=== PATIENT | female | born 1930 | race Caucasian/White ===

== ENCOUNTER 2017-01-05 06:58 | Day surgery (SDC) | payer OTHER, MEDICARE ==
[2017-01-05] MEDS ORDERED: FULVESTRANT 250 MG/5 ML SYRINGE IM ONE (08:00)
[2017-01-05 09:09] LABS: BASOPHIL 1.5 % (0-2.0); EOSINOPHIL 3.1 % (0-4.5); MCH 30.8 pg (25.7-33.7); MCHC 33.6 g/dl (32.0-36.0); MEAN CELL VOLUME 91.8 fl (80-96); MEAN PLT VOLUME 9.5 fl (7.5-11.1); NEUTROPHILS 62.3 % (42.8-82.8); PLATELET COUNT 175 K/MM3 (134-434); RDW 14.2 % (11.6-15.6); WHITE BLOOD COUNT 7.3 K/mm3 (4.0-10.0)
[2017-01-05 11:42] LABS: ALBUMIN 3.6 g/dl (3.4-5.0); BILIRUBIN,DIRECT 0.2 mg/dL (0.0-0.2); BILIRUBIN,TOTAL 0.6 mg/dL (0.2-1.0); TOT PROT 6.6 g/dl (6.4-8.2)
[2017-01-05 13:32] VITALS: TEMP 98.1
[2017-01-05 16:18] VITALS: BP 179/83; PULSE 64
== END 2017-01-05 11:30 | disposition home or self-care (01) ==
LOC: JONCCHEMO 06:58 → J7W 10:37 → JONCCHEMO 11:30
PROVIDERS: ATTEND Internal Medicine Hematology & Oncology
DX: Z51.11 Encounter for antineoplastic chemotherapy (principal); C50.411 Malignant neoplasm of upper-outer quadrant of right female breast
CPT/HCPCS: 96402; J9395; 36415; 80076; 82378; 85025; 86300

== ENCOUNTER 2017-01-19 07:15 | Day surgery (SDC) | payer OTHER, MEDICARE ==
[2017-01-19] MEDS ORDERED: FULVESTRANT 250 MG/5 ML SYRINGE IM ONE (08:00)
[2017-01-19 09:40] LABS: BASOPHIL 1.3 % (0-2.0); EOSINOPHIL 5.6 % (0-4.5); MCH 31.3 pg (25.7-33.7); MCHC 33.9 g/dl (32.0-36.0); MEAN CELL VOLUME 92.3 fl (80-96); MEAN PLT VOLUME 9.5 fl (7.5-11.1); NEUTROPHILS 63.3 % (42.8-82.8); PLATELET COUNT 172 K/MM3 (134-434); RDW 14.7 % (11.6-15.6); WHITE BLOOD COUNT 7.3 K/mm3 (4.0-10.0)
[2017-01-19 11:01] VITALS: BP 172/78; PULSE 58
[2017-01-19 13:38] VITALS: TEMP 97.5
== END 2017-01-19 15:25 | disposition home or self-care (01) ==
LOC: JONCCHEMO 07:15 → J7W 10:52 → JONCCHEMO 15:25
PROVIDERS: ATTEND Internal Medicine Hematology & Oncology
DX: Z51.11 Encounter for antineoplastic chemotherapy (principal); C50.411 Malignant neoplasm of upper-outer quadrant of right female breast
CPT/HCPCS: 96402; J9395; 36415; 85025

== ENCOUNTER 2017-02-16 07:44 | Day surgery (SDC) | payer OTHER, MEDICARE ==
[2017-02-16 09:59] LABS: BASOPHIL 0.7 % (0-2.0); EOSINOPHIL 6.8 % (0-4.5); MCH 31.1 pg (25.7-33.7); MCHC 33.3 g/dl (32.0-36.0); MEAN CELL VOLUME 93.3 fl (80-96); MEAN PLT VOLUME 9.5 fl (7.5-11.1); NEUTROPHILS 61.9 % (42.8-82.8); PLATELET COUNT 163 K/MM3 (134-434); RDW 14.7 % (11.6-15.6); WHITE BLOOD COUNT 6.7 K/mm3 (4.0-10.0)
[2017-02-16] MEDS ORDERED: FULVESTRANT 250 MG/5 ML SYRINGE IM ONE (10:00)
[2017-02-16] MEDS ORDERED: ZOLEDRONIC ACID 4 MG in SODIUM CHLORIDE 100 ML IVPB ONE (10:00)
[2017-02-16 11:39] LABS: ALBUMIN 3.3 g/dl (3.4-5.0); ALK PHOS 90 U/L (45-117); ANION GAP 8 (8-16); BILIRUBIN,DIRECT 0.2 mg/dL (0.0-0.2); BILIRUBIN,TOTAL 0.8 mg/dL (0.2-1.0); CO2 31 mmol/L (21-32); COCKROFT - GAULT 60.35; CREATININE 0.7 mg/dL (0.55-1.02); GLUCOSE,RANDOM 89 mg/dL (74-106); MAGNESIUM 2.2 mg/dL (1.8-2.4); SGOT/AST 29 U/L (15-37); SGPT/ALT 44 U/L (12-78); TOT PROT 6.3 g/dl (6.4-8.2)
[2017-02-16 11:51] VITALS: TEMP 98
[2017-02-16 16:08] VITALS: BP 134/75; PULSE 50
== END 2017-02-16 18:31 | disposition home or self-care (01) ==
LOC: JONCCHEMO 07:44 → J7W 10:41 → JONCCHEMO 18:31
PROVIDERS: ATTEND Internal Medicine Hematology & Oncology
PROC: 3E01305 Introduction of Other Antineoplastic into Subcutaneous Tissue, Percutaneous Approach (ICD-10-PCS; principal; 2017-02-16)
PROC: 3E033GC Introduction of Other Therapeutic Substance into Peripheral Vein, Percutaneous Approach (ICD-10-PCS; 2017-02-16)
DX: Z51.11 Encounter for antineoplastic chemotherapy (principal); C50.411 Malignant neoplasm of upper-outer quadrant of right female breast
CPT/HCPCS: 96365; 96402; J3489; J9395; 36415; 80053; 80076; 82306; 83735; 85025

== ENCOUNTER 2017-03-16 07:34 | Day surgery (SDC) | payer OTHER, MEDICARE ==
[2017-03-16 09:49] LABS: BASOPHIL 0.8 % (0-2.0); EOSINOPHIL 6.4 % (0-4.5); MCH 31.3 pg (25.7-33.7); MCHC 33.5 g/dl (32.0-36.0); MEAN CELL VOLUME 93.4 fl (80-96); MEAN PLT VOLUME 9.5 fl (7.5-11.1); PLATELET COUNT 160 K/MM3 (134-434); RDW 14.6 % (11.6-15.6); WHITE BLOOD COUNT 5.5 K/mm3 (4.0-10.0)
[2017-03-16] MEDS ORDERED: ZOLEDRONIC ACID 4 MG in SODIUM CHLORIDE 100 ML IVPB ONE (10:00)
[2017-03-16] MEDS ORDERED: FULVESTRANT 250 MG/5 ML SYRINGE IM ONE (10:00)
[2017-03-16 10:24] LABS: ALBUMIN 3.4 g/dl (3.4-5.0); ANION GAP 8 (8-16); BILIRUBIN,DIRECT 0.2 mg/dL (0.0-0.2); BILIRUBIN,TOTAL 0.7 mg/dL (0.2-1.0); CALCIUM 9.8 mg/dL (8.5-10.1); CO2 28 mmol/L (21-32); CREATININE 0.8 mg/dL (0.55-1.02); GLUCOSE,RANDOM 101 mg/dL (74-106); SGOT/AST 46 U/L (15-37); SGPT/ALT 48 U/L (12-78); TOT PROT 6.3 g/dl (6.4-8.2)
[2017-03-16 10:25] LABS: ALK PHOS 87 U/L (45-117)
[2017-03-16] MEDS ORDERED: amLODIPine BESYLATE 5 MG TABLET (FP) PO PRN (11:30)
[2017-03-16 13:50] VITALS: BP 177/82; PULSE 51; TEMP 98.1
== END 2017-03-16 13:57 | disposition home or self-care (01) ==
LOC: JONCCHEMO 07:34 → J7W 10:59 → JONCCHEMO 13:57
PROVIDERS: ATTEND Internal Medicine Hematology & Oncology
PROC: 3E01305 Introduction of Other Antineoplastic into Subcutaneous Tissue, Percutaneous Approach (ICD-10-PCS; principal; 2017-03-16)
PROC: 3E033GC Introduction of Other Therapeutic Substance into Peripheral Vein, Percutaneous Approach (ICD-10-PCS; 2017-03-16)
DX: Z51.11 Encounter for antineoplastic chemotherapy (principal); C50.411 Malignant neoplasm of upper-outer quadrant of right female breast
CPT/HCPCS: 36415; 80053; 80076; 83735; 85025; 96365; 96402; 96417; J3489; J9395

== ENCOUNTER 2017-04-13 07:32 | Day surgery (SDC) | payer OTHER, MEDICARE ==
[2017-04-13] MEDS ORDERED: ZOLEDRONIC ACID 4 MG in SODIUM CHLORIDE 100 ML IVPB ONE (08:00)
[2017-04-13] MEDS ORDERED: FULVESTRANT 250 MG/5 ML SYRINGE IM ONE (09:00)
[2017-04-13 09:15] LABS: BASOPHIL 2.3 % (0-2.0); EOSINOPHIL 6.9 % (0-4.5); MCH 31.2 pg (25.7-33.7); MCHC 33.4 g/dl (32.0-36.0); MEAN CELL VOLUME 93.4 fl (80-96); MEAN PLT VOLUME 10.1 fl (7.5-11.1); NEUTROPHILS 48.6 % (42.8-82.8); PLATELET COUNT 171 K/MM3 (134-434); RDW 14.9 % (11.6-15.6); WHITE BLOOD COUNT 6.9 K/mm3 (4.0-10.0)
[2017-04-13 09:42] LABS: ALBUMIN 3.2 g/dl (3.4-5.0); ANION GAP 9 (8-16); BILIRUBIN,TOTAL 0.5 mg/dL (0.2-1.0); CALCIUM 9.9 mg/dL (8.5-10.1); CO2 23 mmol/L (21-32); CREATININE 0.8 mg/dL (0.55-1.02); GLUCOSE,RANDOM 114 mg/dL (74-106); SGOT/AST 39 U/L (15-37); SGPT/ALT 41 U/L (12-78); TOT PROT 6.4 g/dl (6.4-8.2)
[2017-04-13 09:43] LABS: ALK PHOS 79 U/L (45-117)
[2017-04-13 09:44] LABS: BILIRUBIN,DIRECT < 0.1 mg/dL (0.0-0.2)
[2017-04-13 14:33] VITALS: BP 178/79; PULSE 47; TEMP 97.6
== END 2017-04-13 12:00 | disposition home or self-care (01) ==
LOC: JONCCHEMO 07:32 → J7W 09:56 → JONCCHEMO 12:00
PROVIDERS: ATTEND Internal Medicine Hematology & Oncology
PROC: 3E01305 Introduction of Other Antineoplastic into Subcutaneous Tissue, Percutaneous Approach (ICD-10-PCS; principal; 2017-04-13)
PROC: 3E033GC Introduction of Other Therapeutic Substance into Peripheral Vein, Percutaneous Approach (ICD-10-PCS; 2017-04-13)
DX: Z51.11 Encounter for antineoplastic chemotherapy (principal); C50.411 Malignant neoplasm of upper-outer quadrant of right female breast
CPT/HCPCS: 36415; 80053; 80076; 85025; 96402; 96417; J3489; J9395

== ENCOUNTER 2017-05-11 07:26 | Day surgery (SDC) | payer OTHER, MEDICARE ==
[2017-05-11] MEDS ORDERED: FULVESTRANT 250 MG/5 ML SYRINGE IM ONE (10:00)
[2017-05-11] MEDS ORDERED: ZOLEDRONIC ACID 4 MG in SODIUM CHLORIDE 100 ML IVPB ONE (10:00)
[2017-05-11 17:32] VITALS: BP 140/59; PULSE 75; TEMP 97.7
== END 2017-05-11 14:25 | disposition home or self-care (01) ==
LOC: JONCCHEMO 07:26 → J7W 09:25 → JONCCHEMO 14:25
PROVIDERS: ATTEND Internal Medicine Hematology & Oncology
PROC: 3E01305 Introduction of Other Antineoplastic into Subcutaneous Tissue, Percutaneous Approach (ICD-10-PCS; principal; 2017-05-11)
PROC: 3E033GC Introduction of Other Therapeutic Substance into Peripheral Vein, Percutaneous Approach (ICD-10-PCS; 2017-05-11)
DX: Z51.11 Encounter for antineoplastic chemotherapy (principal); C50.411 Malignant neoplasm of upper-outer quadrant of right female breast
CPT/HCPCS: 96365; 96401; 96402; 96417; J3489; J9395

== ENCOUNTER 2017-06-08 07:38 | Day surgery (SDC) | payer OTHER, MEDICARE ==
[2017-06-08] MEDS ORDERED: FULVESTRANT 250 MG/5 ML SYRINGE IM ONE (08:00)
[2017-06-08 10:57] LABS: BASOPHIL 0.9 % (0-2.0); EOSINOPHIL 5.4 % (0-4.5); MCH 30.7 pg (25.7-33.7); MCHC 32.9 g/dl (32.0-36.0); MEAN CELL VOLUME 93.3 fl (80-96); MEAN PLT VOLUME 9.7 fl (7.5-11.1); NEUTROPHILS 61.7 % (42.8-82.8); PLATELET COUNT 186 K/MM3 (134-434); WHITE BLOOD COUNT 6.8 K/mm3 (4.0-10.0)
[2017-06-08 11:09] LABS: ALBUMIN 3.4 g/dl (3.4-5.0); ANION GAP 3 (8-16); BILIRUBIN,DIRECT 0.2 mg/dL (0.0-0.2); CO2 33 mmol/L (21-32); CREATININE 0.8 mg/dL (0.55-1.02); GLUCOSE,RANDOM 87 mg/dL (74-106); SGOT/AST 22 U/L (15-37); SGPT/ALT 28 U/L (12-78)
[2017-06-08 11:10] LABS: ALK PHOS 57 U/L (45-117); BILIRUBIN,TOTAL 0.7 mg/dL (0.2-1.0); TOT PROT 6.6 g/dl (6.4-8.2)
[2017-06-08] MEDS ORDERED: ZOLEDRONIC ACID 4 MG in SODIUM CHLORIDE 100 ML IVPB ONE (12:15)
[2017-06-08 15:00] VITALS: TEMP 98.2
[2017-06-08 15:05] VITALS: BP 176/78; PULSE 46
== END 2017-06-08 13:15 | disposition home or self-care (01) ==
LOC: JONCCHEMO 07:38 → J7W 11:29 → JONCCHEMO 13:15
PROVIDERS: ATTEND Internal Medicine Hematology & Oncology
PROC: 3E033GC Introduction of Other Therapeutic Substance into Peripheral Vein, Percutaneous Approach (ICD-10-PCS; principal; 2017-06-08)
DX: C50.411 Malignant neoplasm of upper-outer quadrant of right female breast (principal)
CPT/HCPCS: 36415; 80053; 80076; 83735; 85025; 96365; 96417; J3489; J9395

== ENCOUNTER 2017-07-06 07:18 | Day surgery (SDC) | payer OTHER, MEDICARE ==
[2017-07-06 09:38] LABS: BASOPHIL 1.2 % (0-2.0); EOSINOPHIL 6.2 % (0-4.5); MCH 30.5 pg (25.7-33.7); MCHC 33.3 g/dl (32.0-36.0); MEAN CELL VOLUME 91.7 fl (80-96); MEAN PLT VOLUME 9.2 fl (7.5-11.1); NEUTROPHILS 58.1 % (42.8-82.8); PLATELET COUNT 196 K/MM3 (134-434); RDW 14.9 % (11.6-15.6); WHITE BLOOD COUNT 6.6 K/mm3 (4.0-10.0)
[2017-07-06] MEDS ORDERED: ZOLEDRONIC ACID 4 MG in SODIUM CHLORIDE 100 ML IVPB ONE (10:00)
[2017-07-06 10:02] LABS: ALBUMIN 3.5 g/dl (3.4-5.0); ALK PHOS 62 U/L (45-117); ANION GAP 2 (8-16); BILIRUBIN,DIRECT 0.2 mg/dL (0.0-0.2); BILIRUBIN,TOTAL 0.8 mg/dL (0.2-1.0); CALCIUM 10.3 mg/dL (8.5-10.1); CO2 36 mmol/L (21-32); CREATININE 0.8 mg/dL (0.55-1.02); GLUCOSE,RANDOM 66 mg/dL (74-106); MAGNESIUM 2.2 mg/dL (1.8-2.4); SGOT/AST 21 U/L (15-37); SGPT/ALT 27 U/L (12-78); TOT PROT 6.8 g/dl (6.4-8.2)
[2017-07-06] MEDS ORDERED: FULVESTRANT 250 MG/5 ML SYRINGE IM ONE (11:00)
[2017-07-06 12:04] VITALS: BP 122/56; PULSE 71; TEMP 98.1
== END 2017-07-06 11:56 | disposition home or self-care (01) ==
LOC: JONCCHEMO 07:18 → J7W 10:44 → JONCCHEMO 11:56
PROVIDERS: ATTEND Internal Medicine Hematology & Oncology
PROC: 3E01305 Introduction of Other Antineoplastic into Subcutaneous Tissue, Percutaneous Approach (ICD-10-PCS; principal; 2017-07-06)
PROC: 3E033GC Introduction of Other Therapeutic Substance into Peripheral Vein, Percutaneous Approach (ICD-10-PCS; 2017-07-06)
DX: Z51.11 Encounter for antineoplastic chemotherapy (principal); C50.411 Malignant neoplasm of upper-outer quadrant of right female breast
CPT/HCPCS: 36415; 80053; 80076; 83735; 85025; 96365; 96402; 96417; J3489; J9395

== ENCOUNTER 2017-08-03 07:15 | Day surgery (SDC) | payer OTHER, MEDICARE ==
[2017-08-03 09:37] LABS: BASOPHIL 1.1 % (0-2.0); EOSINOPHIL 4.7 % (0-4.5); MCH 30.1 pg (25.7-33.7); MCHC 32.3 g/dl (32.0-36.0); MEAN CELL VOLUME 93.1 fl (80-96); NEUTROPHILS 59.9 % (42.8-82.8); PLATELET COUNT 234 K/MM3 (134-434); RDW 15.1 % (11.6-15.6); WHITE BLOOD COUNT 7.2 K/mm3 (4.0-10.0)
[2017-08-03] MEDS ORDERED: ZOLEDRONIC ACID 4 MG in SODIUM CHLORIDE 100 ML IVPB ONE (10:00)
[2017-08-03 10:06] LABS: ALBUMIN 3.3 g/dl (3.4-5.0); ANION GAP 6 (8-16); BILIRUBIN,DIRECT 0.2 mg/dL (0.0-0.2); CALCIUM 9.4 mg/dL (8.5-10.1); CO2 30 mmol/L (21-32); CREATININE 0.8 mg/dL (0.55-1.02); GLUCOSE,RANDOM 84 mg/dL (74-106); MAGNESIUM 1.9 mg/dL (1.8-2.4); SGOT/AST 21 U/L (15-37); SGPT/ALT 29 U/L (12-78)
[2017-08-03 10:08] LABS: ALK PHOS 62 U/L (45-117); BILIRUBIN,TOTAL 0.7 mg/dL (0.2-1.0); TOT PROT 6.6 g/dl (6.4-8.2)
[2017-08-03] MEDS ORDERED: FULVESTRANT 250 MG/5 ML SYRINGE IM ONE (10:45)
[2017-08-03 13:44] VITALS: BP 142/76; PULSE 64; TEMP 97.8
== END 2017-08-03 12:00 | disposition home or self-care (01) ==
LOC: JONCCHEMO 07:15 → J7W 10:07 → JONCCHEMO 12:00
PROVIDERS: ATTEND Internal Medicine Hematology & Oncology
PROC: 3E01305 Introduction of Other Antineoplastic into Subcutaneous Tissue, Percutaneous Approach (ICD-10-PCS; principal; 2017-08-03)
PROC: 3E033GC Introduction of Other Therapeutic Substance into Peripheral Vein, Percutaneous Approach (ICD-10-PCS; 2017-08-03)
DX: Z51.11 Encounter for antineoplastic chemotherapy (principal); C50.411 Malignant neoplasm of upper-outer quadrant of right female breast
CPT/HCPCS: 36415; 80053; 80076; 83735; 85025; 96365; 96402; 96417; J3489; J9395

== ENCOUNTER 2017-08-31 07:23 | Day surgery (SDC) | payer OTHER, MEDICARE ==
[2017-08-31] MEDS ORDERED: FULVESTRANT 250 MG/5 ML SYRINGE IM ONE (08:00)
[2017-08-31] MEDS ORDERED: ZOLEDRONIC ACID 4 MG in SODIUM CHLORIDE 100 ML IVPB ONE (08:15)
[2017-08-31 09:50] LABS: BASO % 0.9 % (0-2.0); EOS % 5.3 % (0-4.5); MCH 30.5 pg (25.7-33.7); MCHC 32.7 g/dl (32.0-36.0); MEAN CELL VOLUME 93.4 fl (80-96); MEAN PLT VOLUME 8.8 fl (7.5-11.1); NEUT % 59.8 % (42.8-82.8); PLATELET COUNT 226 K/MM3 (134-434); RDW 15.1 % (11.6-15.6); WHITE BLOOD COUNT 5.7 K/mm3 (4.0-10.0)
[2017-08-31 10:17] LABS: ALBUMIN 3.2 g/dl (3.4-5.0); ALK PHOS 57 U/L (45-117); ANION GAP 7 (8-16); BILIRUBIN,DIRECT 0.2 mg/dL (0.0-0.2); BILIRUBIN,TOTAL 0.6 mg/dL (0.2-1.0); CALCIUM 9.9 mg/dL (8.5-10.1); CO2 29 mmol/L (21-32); CREATININE 0.7 mg/dL (0.55-1.02); GLUCOSE,RANDOM 92 mg/dL (74-106); SGOT/AST 19 U/L (15-37); SGPT/ALT 26 U/L (12-78); TOT PROT 6.3 g/dl (6.4-8.2)
[2017-08-31 14:03] VITALS: TEMP 97.5
[2017-08-31 16:22] VITALS: BP 139/75; PULSE 28
== END 2017-08-31 12:10 | disposition home or self-care (01) ==
LOC: JONCCHEMO 07:23 → J7W 10:31 → JONCCHEMO 12:10
PROVIDERS: ATTEND Internal Medicine Hematology & Oncology
PROC: 3E01305 Introduction of Other Antineoplastic into Subcutaneous Tissue, Percutaneous Approach (ICD-10-PCS; principal; 2017-08-31)
PROC: 3E033GC Introduction of Other Therapeutic Substance into Peripheral Vein, Percutaneous Approach (ICD-10-PCS; 2017-08-31)
DX: Z51.11 Encounter for antineoplastic chemotherapy (principal)
CPT/HCPCS: 36415; 80053; 80076; 83735; 85025; 96365; 96402; 96417; J3489; J9395

== ENCOUNTER 2017-10-05 07:39 | Day surgery (SDC) | payer OTHER, MEDICARE ==
[2017-10-05] MEDS ORDERED: FULVESTRANT 250 MG/5 ML SYRINGE IM ONE (08:00)
[2017-10-05] MEDS ORDERED: ZOLEDRONIC ACID 4 MG in SODIUM CHLORIDE 100 ML IVPB ONE (08:30)
[2017-10-05 09:50] LABS: BASO % 0.9 % (0-2.0); EOS % 3.6 % (0-4.5); HEMATOCRIT 43.4 % (32.4-45.2); LYMPH % 22.5 % (8-40); MCH 30.2 pg (25.7-33.7); MCHC 32.4 g/dl (32.0-36.0); MEAN CELL VOLUME 93.3 fl (80-96); MEAN PLT VOLUME 9.3 fl (7.5-11.1); MONO % 7.9 % (3.8-10.2); NEUT % 65.1 % (42.8-82.8); PLATELET COUNT 195 K/MM3 (134-434); RBC 4.65 M/mm3 (3.60-5.2); RDW 15.4 % (11.6-15.6); WHITE BLOOD COUNT 6.9 K/mm3 (4.0-10.0)
[2017-10-05 10:12] LABS: ALBUMIN 3.3 g/dl (3.4-5.0); ANION GAP 6 (8-16); BILIRUBIN,DIRECT < 0.2 mg/dL (0.0-0.2); BLOOD UREA NITROGEN 14 mg/dL (7-18); CALCIUM 9.4 mg/dL (8.5-10.1); CHLORIDE 100 mmol/L (98-107); CO2 30 mmol/L (21-32); GLUCOSE,RANDOM 75 mg/dL (74-106); MAGNESIUM 1.8 mg/dL (1.8-2.4); POTASSIUM 4.4 mmol/L (3.5-5.1); SGOT/AST 20 U/L (15-37); SGPT/ALT 26 U/L (12-78); SODIUM 136 mmol/L (136-145)
[2017-10-05 10:20] LABS: ALK PHOS 61 U/L (45-117); BILIRUBIN,TOTAL 0.6 mg/dL (0.2-1.0); CREATININE 0.7 mg/dL (0.55-1.02); TOT PROT 6.4 g/dl (6.4-8.2)
[2017-10-05 12:36] VITALS: BP 144/76; PULSE 60; TEMP 98.2
== END 2017-10-05 11:45 | disposition home or self-care (01) ==
LOC: JONCCHEMO 07:39 → J7W 09:55 → JONCCHEMO 11:45
PROVIDERS: ATTEND Internal Medicine Hematology & Oncology
PROC: 3E01305 Introduction of Other Antineoplastic into Subcutaneous Tissue, Percutaneous Approach (ICD-10-PCS; principal; 2017-10-05)
PROC: 3E033GC Introduction of Other Therapeutic Substance into Peripheral Vein, Percutaneous Approach (ICD-10-PCS; 2017-10-05)
DX: Z51.11 Encounter for antineoplastic chemotherapy (principal); C50.411 Malignant neoplasm of upper-outer quadrant of right female breast; C79.51 Secondary malignant neoplasm of bone
CPT/HCPCS: 36415; 80053; 80076; 82378; 83735; 85025; 86300; 96365; 96402; 96417; J3489; J9395

== ENCOUNTER 2017-11-30 07:19 | Day surgery (SDC) | payer OTHER, MEDICARE ==
[2017-11-30] MEDS ORDERED: FULVESTRANT 250 MG/5 ML SYRINGE IM ONE (08:00)
[2017-11-30] MEDS ORDERED: ZOLEDRONIC ACID 4 MG in SODIUM CHLORIDE 100 ML IVPB ONE (08:30)
[2017-11-30 10:03] LABS: EOS % 5.2 % (0-4.5); HEMATOCRIT 41.1 % (32.4-45.2); HEMOGLOBIN 13.8 GM/dL (10.7-15.3); LYMPH % 24.1 % (8-40); MCH 31.4 pg (25.7-33.7); MCHC 33.7 g/dl (32.0-36.0); MEAN CELL VOLUME 93.4 fl (80-96); MEAN PLT VOLUME 9.2 fl (7.5-11.1); MONO % 7.9 % (3.8-10.2); NEUT % 61.8 % (42.8-82.8); PLATELET COUNT 200 K/MM3 (134-434); RDW 14.8 % (11.6-15.6); WHITE BLOOD COUNT 6.5 K/mm3 (4.0-10.0)
[2017-11-30 10:30] LABS: URINE APPEARANCE SLCLOUDY; URINE BILIRUBIN NEGATIVE (NEGATIVE); URINE BLOOD NEGATIVE (NEGATIVE); URINE COLOR YELLOW; URINE GLUCOSE (UA) NEGATIVE (NEGATIVE); URINE KETONE NEGATIVE (NEGATIVE); URINE LEUK ESTERASE NEGATIVE (NEGATIVE); URINE NITRITE NEGATIVE (NEGATIVE); URINE PROTEIN NEGATIVE (NEGATIVE); URINE UROBILINOGEN NEGATIVE mg/dL (0.2-1.0)
[2017-11-30 10:39] LABS: ALBUMIN 3.2 g/dl (3.4-5.0); BILIRUBIN,DIRECT 0.2 mg/dL (0.0-0.2); BILIRUBIN,TOTAL 0.5 mg/dL (0.2-1.0); MAGNESIUM 1.9 mg/dL (1.8-2.4); TOT PROT 6.5 g/dl (6.4-8.2)
[2017-11-30 10:40] LABS: ALBUMIN 3.4 g/dl (3.4-5.0); ANION GAP 6 (8-16); BILIRUBIN,TOTAL 0.5 mg/dL (0.2-1.0); BLOOD UREA NITROGEN 19 mg/dL (7-18); CALCIUM 9.6 mg/dL (8.5-10.1); CHLORIDE 101 mmol/L (98-107); CO2 30 mmol/L (21-32); CREATININE 0.7 mg/dL (0.55-1.02); GLUCOSE,RANDOM 91 mg/dL (74-106); POTASSIUM 4.5 mmol/L (3.5-5.1); SGOT/AST 21 U/L (15-37); SGPT/ALT 27 U/L (12-78); SODIUM 137 mmol/L (136-145); TOT PROT 6.6 g/dl (6.4-8.2)
[2017-11-30 10:49] LABS: ALK PHOS 75 U/L (45-117)
[2017-11-30 11:06] LABS: CHOLESTEROL 198 mg/dL (50-200); HDL CHOLESTEROL 70 mg/dL (40-60); LDL CHOLESTEROL (ONLY SJRH) 101 mg/dL (5-100); TRIGLYCERIDES 189 mg/dL (35-160)
[2017-11-30] MEDS ORDERED: amLODIPine BESYLATE 2.5 MG TABLET (FP) PO ONE (12:00)
[2017-11-30 18:27] VITALS: BP 130/72; PULSE 51; TEMP 98.4
== END 2017-11-30 13:45 | disposition home or self-care (01) ==
LOC: JONCCHEMO 07:19 → J7W 10:49 → JONCCHEMO 13:45
PROVIDERS: ATTEND Internal Medicine Hematology & Oncology
PROC: 3E01305 Introduction of Other Antineoplastic into Subcutaneous Tissue, Percutaneous Approach (ICD-10-PCS; principal; 2017-11-30)
PROC: 3E033GC Introduction of Other Therapeutic Substance into Peripheral Vein, Percutaneous Approach (ICD-10-PCS; 2017-11-30)
DX: Z51.11 Encounter for antineoplastic chemotherapy (principal); C50.411 Malignant neoplasm of upper-outer quadrant of right female breast; C79.51 Secondary malignant neoplasm of bone
CPT/HCPCS: 36415; 80053; 80061; 80076; 81003; 82306; 82378; 82570; 82607; 83721; 83735; 84439; 84443; 85025; 86300; 96365; 96402; 96417; J3489; J9395

== ENCOUNTER 2018-01-25 07:24 | Day surgery (SDC) | payer OTHER, MEDICARE ==
[2018-01-25] MEDS ORDERED: FULVESTRANT 250 MG/5 ML SYRINGE IM ONE (08:00)
[2018-01-25] MEDS ORDERED: ZOLEDRONIC ACID 4 MG in SODIUM CHLORIDE 100 ML IVPB ONE (08:00)
[2018-01-25 10:17] LABS: EOS % 6.6 % (0-4.5); HEMATOCRIT 39.5 % (32.4-45.2); HEMOGLOBIN 13.5 GM/dL (10.7-15.3); LYMPH % 22.3 % (8-40); MCH 31.7 pg (25.7-33.7); MCHC 34.3 g/dl (32.0-36.0); MEAN CELL VOLUME 92.4 fl (80-96); MEAN PLT VOLUME 9.2 fl (7.5-11.1); MONO % 8.1 % (3.8-10.2); PLATELET COUNT 215 K/MM3 (134-434); RBC 4.27 M/mm3 (3.60-5.2); RDW 15.1 % (11.6-15.6); WHITE BLOOD COUNT 6.2 K/mm3 (4.0-10.0)
[2018-01-25 10:43] LABS: ALBUMIN 3.6 g/dl (3.4-5.0); ANION GAP 9 (8-16); BLOOD UREA NITROGEN 14 mg/dL (7-18); CHLORIDE 100 mmol/L (98-107); CO2 29 mmol/L (21-32); CREATININE 0.8 mg/dL (0.55-1.02); GLUCOSE,RANDOM 97 mg/dL (74-106); POTASSIUM 4.4 mmol/L (3.5-5.1); SGOT/AST 23 U/L (15-37); SGPT/ALT 23 U/L (12-78); SODIUM 138 mmol/L (136-145)
[2018-01-25 10:45] LABS: ALK PHOS 75 U/L (45-117); BILIRUBIN,TOTAL 0.6 mg/dL (0.2-1.0); TOT PROT 6.5 g/dl (6.4-8.2)
[2018-01-25 10:46] LABS: BILIRUBIN,DIRECT 0.2 mg/dL (0.0-0.2); MAGNESIUM 2.2 mg/dL (1.8-2.4)
[2018-01-25 18:33] VITALS: TEMP 97.6
[2018-01-25 18:36] VITALS: BP 127/87; PULSE 61
== END 2018-01-25 13:35 | disposition home or self-care (01) ==
LOC: JONCCHEMO 07:24 → J7W 11:15 → JONCCHEMO 13:35
PROVIDERS: ATTEND Internal Medicine Hematology & Oncology
PROC: 3E01305 Introduction of Other Antineoplastic into Subcutaneous Tissue, Percutaneous Approach (ICD-10-PCS; principal; 2018-01-25)
PROC: 3E033GC Introduction of Other Therapeutic Substance into Peripheral Vein, Percutaneous Approach (ICD-10-PCS; 2018-01-25)
DX: Z51.11 Encounter for antineoplastic chemotherapy (principal); C50.411 Malignant neoplasm of upper-outer quadrant of right female breast; C79.51 Secondary malignant neoplasm of bone
CPT/HCPCS: 36415; 80053; 80076; 83735; 85025; 96365; 96402; 96417; J3489; J9395

== ENCOUNTER 2018-02-09 20:32 | Emergency (ER) | payer OTHER, MEDICARE ==
[2018-02-09 20:44] VITALS: BP 167/99; PULSE 75; TEMP 98.9; BMI 28.5
--- NOTE | 2018-02-09 20:45 | PDOC ---
Rapid Medical Evaluation Time Seen by Provider: 02/09/18 20:39 Medical Evaluation: Allergies Allergy/AdvReac Type Severity Reaction Status Date / Time Penicillins Allergy Verified 07/17/14 22:07 bee stings Allergy Uncoded 07/17/14 22:07 02/09/18 20:40 Pt. is an 88 y.o F with pmh of breast cancer, who presents to the ED with R arm pain trying to open a window. States she felt a snap/pop. Exam: TTP of the R humerus, unable to lift R arm without assistance. Orders: R humerus x-ray Pt. will proceed to ED for further evaluation. Discharge Disposition - Referrals Referrals: Kendell Hoyt MD [Primary Care Provider] - - Patient Instructions - Post Discharge Activity
--- NOTE | 2018-02-10 00:35 | PDOC ---
*Physical Exam - Vital Signs Last Vital Signs Temp Pulse Resp BP Pulse Ox 98.9 F 75 18 167/99 97 02/09/18 20:40 02/09/18 20:40 02/09/18 20:40 02/09/18 20:40 02/09/18 20:40 Medical Decision Making - Medical Decision Making 02/10/18 00:35 Pt seen by Midlevel Provider under my direct supervision Ancillary studies reviewed I agree with plan as outlined by Midlevel Provider *DC/Admit/Observation/Transfer Diagnosis at time of Disposition: Injury of right rotator cuff - Discharge Dispostion Disposition: HOME Condition at time of disposition: Good - Referrals Referrals: Jose Eduardo Martinez MD [Staff Physician] - Call tomorrow Kendell Hoyt MD [Primary Care Provider] - - Patient Instructions Printed Discharge Instructions: How to Use a Sling, DI for Rotator Cuff Injury Additional Instructions: Discharge Instructions: -The xray of your shoulder was normal -You probably injured your rotator cuff -Please take Tylenol for pain if needed -Use sling for comfort -Apply ice to affected area -Follow up with Dr. Martinez tomorrow -Return to the ER with any worsening or concerning symptoms - Post Discharge Activity
--- NOTE | 2018-02-10 00:41 | PDOC ---
History of Present Illness - General Chief Complaint: Injury Stated Complaint: PAIN Time Seen by Provider: 02/09/18 20:39 History Source: Patient Exam Limitations: No Limitations - History of Present Illness Initial Comments: CHIEF COMPLAINT: 88 y/o afebrile female with PMH HTN, HLD, breast CA with recent relapse c/o right shoulder/arm pain. HISTORY OF PRESENT ILLNESS: The patient states she was opening up one of her windows this evening when she felt a "pop" in her right shoulder and was then unable to move her right arm. She denies numbness/tingling. Vital signs on arrival are within normal limits. REVIEW OF SYSTEMS: GENERAL/CONSTITUTIONAL: No fever/chills. No weakness. No weight change. MUSCULOSKELETAL: +right shoulder pain and decreased ROM. No neck or back pain. SKIN: No rash or easy bruising. NEUROLOGIC: No headache, vertigo, loss of consciousness, or loss of sensation. PHYSICAL EXAM: VITAL_SIGNS: within normal limits GENERAL_APPEARANCE: alert, cooperative, mild obvious discomfort. The patient is holding her right arm against her body. MENTAL_STATUS: speech clear, oriented X 3, responds appropriately to questions. NEURO: motor intact and sensory intact in injured extremity. EXTREMITIES: TTP of right AC joint. Patient cannot flex right arm. She cannot abduct her right arm at all. No deformities to shoulder joint. No clavicular crepitus or tenting. SKIN: warm, dry, good color. Past History - Past Medical History Allergies/Adverse Reactions: Allergies Allergy/AdvReac Type Severity Reaction Status Date / Time Penicillins Allergy Verified 02/09/18 20:40 bee stings Allergy Uncoded 02/09/18 20:40 Home Medications: Ambulatory Orders Tamoxifen Citrate 20 mg PO HS 07/04/14 Acetaminophen [Tylenol .Regular Strength -] 650 mg PO Q4H PRN #0 tablet Amlodipine Besylate [Norvasc -] 2.5 mg PO DAILY@1600 #0 tablet 07/07/14 Aspirin [ASA -] 81 mg PO DAILY #0 tab.chew 07/07/14 Atenolol [Tenormin -] 25 mg PO DAILY #0 tablet 07/07/14 Atorvastatin Ca [Lipitor] 10 mg PO HS #0 tablet 07/07/14 Clopidogrel Bisulfate [Plavix -] 75 mg PO DAILY #0 tablet 07/07/14 Cyanocobalamin [Vitamin B12 -] 1,000 mcg PO DAILY #0 tablet 07/07/14 Gabapentin [Neurontin -] 100 mg PO TID #0 capsule 07/07/14 Hydrochlorothiazide [Hctz -] 12.5 mg PO DAILY@1200 #0 cap 07/07/14 Multivitamins [Multivit ([facility] Formul[facility])] 1 tab PO DAILY #0 tab 07/07/14 Pantoprazole Sodium [Protonix -] 40 mg PO DAILY #0 tablet.ec 07/07/14 Rivaroxaban [Xarelto -] 15 mg PO BID #0 tablet 07/07/14 Magnesium Hydrox 2400MG/30Ml [Milk of Magnesia -] 30 ml PO DAILY PRN #30 cup 07/28 Polyethylene Glycol 3350 [Miralax 119 gm Btl -] 17 gm PO DAILY #1 bottle Sennosides/Docusate Sodium [Pericolace -] 2 each PO DAILY #60 tablet 07/25/14 oxyCODONE HCL [Roxicodone -] 5 mg PO Q3H PRN #20 tablet 07/25/14 Cancer: Yes (BREAST CANCER) Cardiac Disorders: Yes (s/p stent x2) COPD: No HTN: Yes - Surgical History Cardiac Surgery: Yes (PT STATES 2 STENTS DONE IN MAY 2014 AND TWO DONE 07/03/14 ) - Immunization History Immunization Up to Date: Yes - Suicide/Smoking/Psychosocial Hx Smoking History: Never smoked Hx Alcohol Use: No Substance Use Type: None *Physical Exam - Vital Signs Last Vital Signs Temp Pulse Resp BP Pulse Ox 98.9 F 75 18 167/99 97 02/09/18 20:40 02/09/18 20:40 02/09/18 20:40 02/09/18 20:40 02/09/18 20:40 Medical Decision Making - Medical Decision Making A/P: 88 y/o female with what sounds like right rotator cuff injury. xray of right shoulder performed from triage. No acute bony deformities or dislocations noted. Will give sling, PO tylenol and discharge to home with instructions for ortho follow up. The patient was instructed to return to the ER with any worsening or concerning symptoms. The patient verbalizes understanding of all instructions, has no further questions and is awaiting discharge. *DC/Admit/Observation/Transfer Diagnosis at time of Disposition: Injury of right rotator cuff Qualifiers: Encounter type: initial encounter Qualified Code(s): S46.001A - Unspecified injury of muscle(s) and tendon(s) of the rotator cuff of right shoulder, initial encounter - Discharge Dispostion Disposition: HOME Condition at time of disposition: Good - Referrals Referrals: Kendell Hoyt MD [Primary Care Provider] - Jose Eduardo Martinez MD [Staff Physician] - Call tomorrow - Patient Instructions Printed Discharge Instructions: How to Use a Sling, DI for Rotator Cuff Injury Additional Instructions: Discharge Instructions: -The xray of your shoulder was normal -You probably injured your rotator cuff -Please take Tylenol for pain if needed -Use sling for comfort -Apply ice to affected area -Follow up with Dr. Martinez tomorrow -Return to the ER with any worsening or concerning symptoms - Post Discharge Activity
[2018-02-10] MEDS ORDERED: ACETAMINOPHEN 325 MG TABLET (FP) PO ONE (01:31)
[2018-02-10] MEDS ORDERED: ACETAMINOPHEN 325 MG TABLET (FP) ONE ×2 (02:10→02:21)
== END 2018-02-10 02:37 | disposition home or self-care (01) ==
LOC: JER 20:32 → JERFT 20:32 → JER 02-10 02:37
DX: S46.001A Unspecified injury of muscle(s) and tendon(s) of the rotator cuff of right shoulder, initial encounter (principal); X50.0XXA Overexertion from strenuous movement or load, initial encounter; Y93.89 Activity, other specified; Y92.018 Other place in single-family (private) house as the place of occurrence of the external cause; Y99.8 Other external cause status; I25.10 Atherosclerotic heart disease of native coronary artery without angina pectoris; I10 Essential (primary) hypertension; Z95.5 Presence of coronary angioplasty implant and graft; C50.411 Malignant neoplasm of upper-outer quadrant of right female breast
CPT/HCPCS: 73030-TC-RT-FY; 73060-TC-RT-FY; 99281-25

== ENCOUNTER 2018-02-22 07:24 | Day surgery (SDC) | payer OTHER, MEDICARE ==
[2018-02-22] MEDS ORDERED: ZOLEDRONIC ACID 4 MG in SODIUM CHLORIDE 100 ML IVPB ONE (09:00)
[2018-02-22 09:48] LABS: BASO % 0.7 % (0-2.0); EOS % 3.5 % (0-4.5); HEMATOCRIT 41.3 % (32.4-45.2); HEMOGLOBIN 13.7 GM/dL (10.7-15.3); LYMPH % 15.8 % (8-40); MCH 30.9 pg (25.7-33.7); MCHC 33.2 g/dl (32.0-36.0); MEAN CELL VOLUME 93.1 fl (80-96); MEAN PLT VOLUME 9.4 fl (7.5-11.1); MONO % 7.1 % (3.8-10.2); NEUT % 72.9 % (42.8-82.8); PLATELET COUNT 233 K/MM3 (134-434); RBC 4.43 M/mm3 (3.60-5.2); RDW 15.4 % (11.6-15.6); WHITE BLOOD COUNT 8.8 K/mm3 (4.0-10.0)
[2018-02-22] MEDS ORDERED: FULVESTRANT 250 MG/5 ML SYRINGE IM ONE (10:00)
[2018-02-22 10:57] LABS: ALBUMIN 3.5 g/dl (3.4-5.0); ALK PHOS 91 U/L (45-117); ANION GAP 6 (8-16); BILIRUBIN,DIRECT 0.2 mg/dL (0.0-0.2); BILIRUBIN,TOTAL 0.6 mg/dL (0.2-1.0); BLOOD UREA NITROGEN 15 mg/dL (7-18); CALCIUM 9.6 mg/dL (8.5-10.1); CHLORIDE 98 mmol/L (98-107); CO2 31 mmol/L (21-32); CREATININE 0.7 mg/dL (0.55-1.02); GLUCOSE,RANDOM 78 mg/dL (74-106); MAGNESIUM 2.1 mg/dL (1.8-2.4); POTASSIUM 4.1 mmol/L (3.5-5.1); SGOT/AST 26 U/L (15-37); SGPT/ALT 23 U/L (12-78); SODIUM 135 mmol/L (136-145); TOT PROT 6.7 g/dl (6.4-8.2)
[2018-02-22 16:01] VITALS: TEMP 97.9
[2018-02-22 16:06] VITALS: BP 145/69; PULSE 66
== END 2018-02-22 12:40 | disposition home or self-care (01) ==
LOC: JONCCHEMO 07:24 → J7W 10:51 → JONCCHEMO 12:40
PROVIDERS: ATTEND Internal Medicine Hematology & Oncology
PROC: 3E02305 Introduction of Other Antineoplastic into Muscle, Percutaneous Approach (ICD-10-PCS; principal; 2018-02-22)
PROC: 3E033GC Introduction of Other Therapeutic Substance into Peripheral Vein, Percutaneous Approach (ICD-10-PCS; 2018-02-22)
DX: Z51.11 Encounter for antineoplastic chemotherapy (principal); C50.411 Malignant neoplasm of upper-outer quadrant of right female breast; C79.51 Secondary malignant neoplasm of bone
CPT/HCPCS: 36415; 80048; 80076; 83735; 85025; 96365; 96402; 96417; J3489; J9395

== ENCOUNTER 2018-04-19 07:35 | Day surgery (SDC) | payer OTHER, MEDICARE ==
[2018-04-19] MEDS ORDERED: ZOLEDRONIC ACID 4 MG in SODIUM CHLORIDE 100 ML IVPB ONE (09:00)
[2018-04-19] MEDS ORDERED: FULVESTRANT 250 MG/5 ML SYRINGE IM ONE (10:00)
[2018-04-19 10:13] LABS: BASO % 0.7 % (0-2.0); EOS % 4.3 % (0-4.5); HEMATOCRIT 40.5 % (32.4-45.2); HEMOGLOBIN 13.6 GM/dL (10.7-15.3); LYMPH % 22.2 % (8-40); MCH 31.1 pg (25.7-33.7); MCHC 33.5 g/dl (32.0-36.0); MEAN CELL VOLUME 92.8 fl (80-96); MEAN PLT VOLUME 9.7 fl (7.5-11.1); MONO % 10.3 % (3.8-10.2); NEUT % 62.5 % (42.8-82.8); PLATELET COUNT 206 K/MM3 (134-434); RBC 4.37 M/mm3 (3.60-5.2); RDW 15.1 % (11.6-15.6); WHITE BLOOD COUNT 6.4 K/mm3 (4.0-10.0)
[2018-04-19 10:44] LABS: ALBUMIN 3.4 g/dl (3.4-5.0); ANION GAP 5 (8-16); BILIRUBIN,DIRECT 0.2 mg/dL (0.0-0.2); BLOOD UREA NITROGEN 17 mg/dL (7-18); CALCIUM 9.9 mg/dL (8.5-10.1); CHLORIDE 99 mmol/L (98-107); CO2 31 mmol/L (21-32); CREATININE 0.8 mg/dL (0.55-1.02); GLUCOSE,RANDOM 81 mg/dL (74-106); POTASSIUM 4.1 mmol/L (3.5-5.1); SGOT/AST 28 U/L (15-37); SGPT/ALT 24 U/L (12-78); SODIUM 135 mmol/L (136-145)
[2018-04-19 10:45] LABS: ALK PHOS 105 U/L (45-117); BILIRUBIN,TOTAL 0.4 mg/dL (0.2-1.0); TOT PROT 6.7 g/dl (6.4-8.2)
[2018-04-19] MEDS ORDERED: amLODIPine BESYLATE 5 MG TABLET (FP) PO PRN (11:03)
[2018-04-19 17:44] VITALS: TEMP 97.7
[2018-04-19 17:55] VITALS: BP 148/84; PULSE 76
== END 2018-04-19 12:15 | disposition home or self-care (01) ==
LOC: JONCCHEMO 07:35 → J7W 10:57 → JONCCHEMO 12:15
PROVIDERS: ATTEND Internal Medicine Hematology & Oncology
PROC: 3E033GC Introduction of Other Therapeutic Substance into Peripheral Vein, Percutaneous Approach (ICD-10-PCS; principal; 2018-04-19)
PROC: 3E02305 Introduction of Other Antineoplastic into Muscle, Percutaneous Approach (ICD-10-PCS; 2018-04-19)
DX: Z51.11 Encounter for antineoplastic chemotherapy (principal); C50.411 Malignant neoplasm of upper-outer quadrant of right female breast; C79.51 Secondary malignant neoplasm of bone
CPT/HCPCS: 36415; 73060-TC-RT-FY; 80053; 80076; 82378; 83735; 85025; 86300; 96365; 96375; 96402; 96417; J3489; J9395

== ENCOUNTER 2018-05-24 07:43 | Day surgery (SDC) | payer OTHER, MEDICARE ==
[2018-05-24] MEDS ORDERED: FULVESTRANT 250 MG/5 ML SYRINGE IM ONE (09:00)
[2018-05-24] MEDS ORDERED: ZOLEDRONIC ACID 4 MG in SODIUM CHLORIDE 100 ML IVPB ONE (09:15)
[2018-05-24 09:26] LABS: BASO % 0.7 % (0-2.0); EOS % 3.1 % (0-4.5); HEMATOCRIT 41.9 % (32.4-45.2); HEMOGLOBIN 14.2 GM/dL (10.7-15.3); MCH 31.4 pg (25.7-33.7); MCHC 33.9 g/dl (32.0-36.0); MEAN CELL VOLUME 92.8 fl (80-96); MEAN PLT VOLUME 9.1 fl (7.5-11.1); MONO % 8.8 % (3.8-10.2); NEUT % 66.4 % (42.8-82.8); PLATELET COUNT 194 K/MM3 (134-434); RBC 4.51 M/mm3 (3.60-5.2); RDW 15.1 % (11.6-15.6); WHITE BLOOD COUNT 6.1 K/mm3 (4.0-10.0)
[2018-05-24 09:55] LABS: ALBUMIN 3.4 g/dl (3.4-5.0); ALK PHOS 144 U/L (45-117); ANION GAP 8 MMOL/L (8-16); BILIRUBIN,TOTAL 0.8 mg/dL (0.2-1.0); BLOOD UREA NITROGEN 15 mg/dL (7-18); CALCIUM 9.9 mg/dL (8.5-10.1); CHLORIDE 100 mmol/L (98-107); CO2 29 mmol/L (21-32); CREATININE 0.7 mg/dL (0.55-1.02); GLUCOSE,RANDOM 105 mg/dL (74-106); POTASSIUM 4.4 mmol/L (3.5-5.1); SGOT/AST 39 U/L (15-37); SGPT/ALT 32 U/L (12-78); SODIUM 137 mmol/L (136-145); TOT PROT 6.6 g/dl (6.4-8.2)
[2018-05-24 10:04] LABS: ALBUMIN 3.4 g/dl (3.4-5.0); BILIRUBIN,DIRECT 0.2 mg/dL (0.0-0.2); BILIRUBIN,TOTAL 0.8 mg/dL (0.2-1.0); MAGNESIUM 2.1 mg/dL (1.8-2.4); TOT PROT 6.7 g/dl (6.4-8.2)
[2018-05-24] MEDS ORDERED: amLODIPine BESYLATE 2.5 MG TABLET (FP) PO ONE (11:30)
[2018-05-24 15:05] VITALS: TEMP 97.8
[2018-05-24 15:10] VITALS: BP 168/72; PULSE 48
== END 2018-05-24 12:30 | disposition home or self-care (01) ==
LOC: JONCCHEMO 07:43 → J7W 11:02 → JONCCHEMO 12:30
PROVIDERS: ATTEND Internal Medicine Hematology & Oncology
PROC: 3E033GC Introduction of Other Therapeutic Substance into Peripheral Vein, Percutaneous Approach (ICD-10-PCS; principal; 2018-05-24)
DX: C50.411 Malignant neoplasm of upper-outer quadrant of right female breast (principal); C79.51 Secondary malignant neoplasm of bone
CPT/HCPCS: 36415; 80053; 80076; 83735; 85025; 96365; 96417; J3489; J9395

== ENCOUNTER 2018-05-31 19:23 | Emergency (ER) | payer OTHER, MEDICARE ==
--- NOTE | 2018-05-31 19:58 | PDOC ---
Rapid Medical Evaluation Time Seen by Provider: 05/31/18 19:53 Medical Evaluation: Allergies Allergy/AdvReac Type Severity Reaction Status Date / Time Penicillins Allergy Verified 02/09/18 20:40 bee stings Allergy Uncoded 02/09/18 20:40 05/31/18 19:53 This patient had a brief in-person evaluation by me The patient has a chief complaint of: allergic reaction to new medication ibrance. States red itching rash to face, now with facial swelling and rash on legs. Denies difficulty breathing The pertinent physical findings are: Nad, speech clear even and unlabored breathing erythema and small amount of swelling to both cheeks The following orders have been placed: benadryl This patient will proceed to the ED for further evaluation.
[2018-05-31 20:00] VITALS: BP 136/79; PULSE 59; TEMP 98; BMI 27.9
[2018-05-31] MEDS ORDERED: diphenhydrAMINE HCL 25 MG CAPSULE (FP) PO ONE ×2 (20:01→20:34)
[2018-05-31] MEDS ORDERED: predniSONE 20 MG TABLET (UD) ONE (20:40)
--- NOTE | 2018-05-31 20:55 | PDOC ---
History of Present Illness - General History Source: Patient Exam Limitations: No Limitations <Sara Mai - Last Filed: 05/31/18 20:55> - General History Source: Patient - History of Present Illness Initial Comments: 05/31/18 21:02 The patient is a 88 year old female with a significant past medical history of HTN, HLD, Anemia, Breast cancer, Spinal stenosis, Right femoral DVT, s/p Angioplasty with 2 stents and a PSHx of Mastectomy who presents to the ER with a rash to her face, arm and legs after day 4 of taking Ibrance. Patient follows regularly with Dr. 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 Patient denies any rashes or side effects after day 2 of Ibrance but initially noticed a rash on her face after day 3. Patient reports she is now on day 4 of Ibrance and has noticed the rash spreading to her arms and legs as well. Patient has a scheduled appointment for 06/03/[address] Ryder. Patient states she will also follow up with Dr. Andrea , surgeon, on 06/02/18. The patient denies wheezing, tongue or lip swelling, shortness of breath, headache, and dizziness. Denies fever, chills, nausea, vomit, diarrhea, and constipation. Denies dysuria, frequency, urgency, and hematuria. Allergies: penicillins Past surgical history: mastectomy Social history: None reported. PCP: Dr. Hoyt <Marylin Padilla - Last Filed: 05/31/18 21:06> - General Chief Complaint: Allergic Reaction Stated Complaint: RASH Time Seen by Provider: 05/31/18 19:53 Past History - Past Medical History Cancer: Yes (BREAST CANCER) Cardiac Disorders: Yes (s/p stent x2) COPD: No HTN: Yes - Surgical History Cardiac Surgery: Yes (PT STATES 2 STENTS DONE IN MAY 2014 AND TWO DONE 07/03/14 ) - Immunization History Immunization Up to Date: Yes - Suicide/Smoking/Psychosocial Hx Smoking History: Never smoked Have you smoked in the past 12 months: No Information on smoking cessation initiated: No Hx Alcohol Use: No Drug/Substance Use Hx: No Substance Use Type: None <Sara Mai - Last Filed: 05/31/18 20:55> <Marylin Padilla - Last Filed: 05/31/18 21:06> - Past Medical History Allergies/Adverse Reactions: Allergies Allergy/AdvReac Type Severity Reaction Status Date / Time Penicillins Allergy Verified 02/09/18 20:40 bee stings Allergy Uncoded 02/09/18 20:40 Home Medications: Ambulatory Orders Aspirin [ASA -] 81 mg PO DAILY #0 tab.chew 07/07/14 Atorvastatin Ca [Lipitor] 10 mg PO HS #0 tablet 07/07/14 Cyanocobalamin [Vitamin B12 -] 1,000 mcg PO DAILY #0 tablet 07/07/14 Hydrochlorothiazide [Hctz -] 12.5 mg PO DAILY@1200 #0 cap 07/07/14 Multivitamins [Multivit ([facility] Form[facility])] 1 tab PO DAILY #0 tab 07/07/14 Pantoprazole Sodium [Protonix -] 40 mg PO DAILY #0 tablet.ec 07/07/14 Prednisone [Deltasone] 20 mg PO BID 3 Days #6 tablet MDD 2 05/31/18 Review of Systems - Review of Systems Able to Perform ROS?: Yes Comments:: 05/31/18 21:05 ADULT ROS GENERAL/CONSTITUTIONAL: No fever or chills. No weakness. HEAD, EYES, EARS, NOSE AND THROAT: No change in vision. No ear pain or discharge. No sore throat. CARDIOVASCULAR: No chest pain or shortness of breath. RESPIRATORY: No cough, wheezing, or hemoptysis. GASTROINTESTINAL: No nausea, vomiting, diarrhea or constipation. GENITOURINARY: No dysuria, frequency, or change in urination. MUSCULOSKELETAL: No joint or muscle swelling or pain. No neck or back pain. SKIN: (+) Rash to the face, arms, and legs. NEUROLOGIC: No headache, vertigo, loss of consciousness, or change in strength/ sensation. ENDOCRINE: No increased thirst. No abnormal weight change. HEMATOLOGIC/LYMPHATIC: No anemia, easy bleeding, or history of blood clots. ALLERGIC/IMMUNOLOGIC: No hives or skin allergy. <Marylin Padilla - Last Filed: 05/31/18 21:06> *Physical Exam - Vital Signs Last Vital Signs Temp Pulse Resp BP Pulse Ox 98.0 F 59 L 17 136/79 100 05/31/18 19:58 05/31/18 19:58 05/31/18 19:58 05/31/18 19:58 05/31/18 19:58 - Physical Exam General Appearance: Yes: Appropriately Dressed HEENT: positive: Normal ENT Inspection, Pharynx Normal, Other (no uvular edema, no tongue or lip swelling. ) Neck: positive: Trachea midline Respiratory/Chest: positive: Lungs Clear, Normal Breath Sounds. negative: Respiratory Distress Cardiovascular: positive: Regular Rhythm, Regular Rate, S1, S2. negative: Edema Gastrointestinal/Abdominal: positive: Normal Bowel Sounds, Flat, Soft. negative : Tender Musculoskeletal: positive: Normal Inspection. negative: CVA Tenderness Extremity: positive: Normal Capillary Refill, Normal Inspection, Normal Range of Motion Integumentary: positive: Hives Neurologic: positive: Fully Oriented, Alert, Normal Mood/Affect <Sara Mai - Last Filed: 05/31/18 20:55> - Vital Signs Last Vital Signs Temp Pulse Resp BP Pulse Ox 98.0 F 59 L 17 136/79 100 05/31/18 19:58 05/31/18 19:58 05/31/18 19:58 05/31/18 19:58 05/31/18 19:58 <Marylin Padilla - Last Filed: 05/31/18 21:06> ED Treatment Course - Medications Given in the ED: ED Medications Discontinued Medications Generic Name Dose Route Start Last Admin Trade Name Dangeloq PRN Reason Stop Dose Admin Diphenhydramine HCl 50 mg 05/31/18 20:01 05/31/18 20:55 Benadryl - PO 05/31/18 20:02 50 mg ONCE ONE Administration <Marylin Padilla - Last Filed: 05/31/18 21:06> Medical Decision Making - Medical Decision Making 05/31/18 20:53 88 yo f h/o breast ca with recurrence under care of dr ryder, here with c/o allergic reaction to new medication ibrance 175 mg she started 4 days ago. denies wheezing no tongue or lip swelling. itchy rash started face spread to arms and legs. on exam no tongue or mouth involvement. urticarial type rash. plan steroids, benadryl, will dc medication. try dr. ryder to discuss dc medication. likely dc home with steroids and benadryl. 05/31/18 21:00 d/w dr ryder regarding need to stop Ibrance. will see pt as scheduled. no tongue or mouth involvement dc home. <Sara Mai - Last Filed: 05/31/18 20:55> *DC/Admit/Observation/Transfer - Discharge Dispostion Decision to Admit order: No <Sara Mai - Last Filed: 05/31/18 20:55> - Attestations Scribe Attestion: 05/31/18 21:06 Documentation prepared by Marylin Padilla, acting as director of medical staff services for Sara Mai MD. <Marylin Padilla - Last Filed: 05/31/18 21:06> Diagnosis at time of Disposition: Allergic reaction - Discharge Dispostion Disposition: HOME Condition at time of disposition: Improved - Prescriptions Prescriptions: Prednisone [Deltasone] 20 mg PO BID 3 Days #6 tablet MDD 2 - Referrals Referrals: Kendell Hoyt MD [Primary Care Provider] - - Patient Instructions Printed Discharge Instructions: DI for Adverse Drug Reaction -- Allergic Additional Instructions: you should take prednisone 20 mg twice daily x 3 days. you should also take benadryl 25 mg every 6 hrs as needed for itching. return for any shortness of breath, tongue or lip or facial swelling or any concerns. you should stop taking your medication Ibrance as it is likely the cause of your allergic reaction. follow up with dr. ryder this 06/03 as scheduled. - Post Discharge Activity
[2018-05-31] MEDS ORDERED: predniSONE 20 MG TABLET (UD) PO ONE (21:11)
== END 2018-05-31 21:35 | disposition home or self-care (01) ==
LOC: JER 19:23
DX: T78.49XA Other allergy, initial encounter (principal); X58.XXXA Exposure to other specified factors, initial encounter; I10 Essential (primary) hypertension; E78.5 Hyperlipidemia, unspecified; Z85.3 Personal history of malignant neoplasm of breast; Z86.718 Personal history of other venous thrombosis and embolism
CPT/HCPCS: 99282-25

== ENCOUNTER 2018-06-21 07:53 | Day surgery (SDC) | payer OTHER, MEDICARE ==
[2018-06-21] MEDS ORDERED: FULVESTRANT 250 MG/5 ML SYRINGE IM ONE (10:00)
[2018-06-21] MEDS ORDERED: ZOLEDRONIC ACID 4 MG in SODIUM CHLORIDE 100 ML IVPB ONE (10:00)
[2018-06-21 10:09] LABS: BASO % 0.8 % (0-2.0); EOS % 5.4 % (0-4.5); HEMATOCRIT 39.1 % (32.4-45.2); HEMOGLOBIN 13.1 GM/dL (10.7-15.3); LYMPH % 28.1 % (8-40); MCH 31.5 pg (25.7-33.7); MCHC 33.4 g/dl (32.0-36.0); MEAN CELL VOLUME 94.4 fl (80-96); MEAN PLT VOLUME 8.9 fl (7.5-11.1); MONO % 9.1 % (3.8-10.2); NEUT % 56.6 % (42.8-82.8); PLATELET COUNT 279 K/MM3 (134-434); RBC 4.14 M/mm3 (3.60-5.2); RDW 15.8 % (11.6-15.6); WHITE BLOOD COUNT 4.9 K/mm3 (4.0-10.0)
[2018-06-21 10:58] LABS: ALBUMIN 3.2 g/dl (3.4-5.0); ALK PHOS 159 U/L (45-117); ANION GAP 4 MMOL/L (8-16); BILIRUBIN,TOTAL 0.4 mg/dL (0.2-1); BLOOD UREA NITROGEN 14 mg/dL (7-18); CALCIUM 10.3 mg/dL (8.5-10.1); CHLORIDE 102 mmol/L (98-107); CO2 30 mmol/L (21-32); CREATININE 0.7 mg/dL (0.55-1.3); GLUCOSE,RANDOM 87 mg/dL (74-106); POTASSIUM 4.5 mmol/L (3.5-5.1); SGOT/AST 33 U/L (15-37); SGPT/ALT 29 U/L (13-61); SODIUM 135 mmol/L (136-145); TOT PROT 6.4 g/dl (6.4-8.2)
[2018-06-21 11:01] LABS: ALBUMIN 3.2 g/dl (3.4-5.0); BILIRUBIN,DIRECT 0.2 mg/dL (0.0-0.2); BILIRUBIN,TOTAL 0.5 mg/dL (0.2-1); TOT PROT 6.3 g/dl (6.4-8.2)
[2018-06-21 16:18] VITALS: TEMP 97.7
[2018-06-21 16:20] VITALS: BP 158/78; PULSE 68
== END 2018-06-21 11:50 | disposition home or self-care (01) ==
LOC: JONCCHEMO 07:53 → J7W 10:31 → JONCCHEMO 11:50
PROVIDERS: ATTEND Internal Medicine Hematology & Oncology
PROC: 3E033GC Introduction of Other Therapeutic Substance into Peripheral Vein, Percutaneous Approach (ICD-10-PCS; principal; 2018-06-21)
DX: C50.411 Malignant neoplasm of upper-outer quadrant of right female breast (principal); C79.51 Secondary malignant neoplasm of bone
CPT/HCPCS: 36415; 80053; 80076; 82306; 82310; 83735; 83970; 84100; 85025; 93971-TC; 96365; 96417; J3489

== ENCOUNTER 2018-07-19 07:16 | Day surgery (SDC) | payer OTHER, MEDICARE ==
[2018-07-19] MEDS ORDERED: FULVESTRANT 250 MG/5 ML SYRINGE IM ONE (09:00)
[2018-07-19] MEDS ORDERED: ZOLEDRONIC ACID 4 MG in SODIUM CHLORIDE 100 ML IVPB ONE (09:10)
[2018-07-19 10:20] LABS: BASO % 0.6 % (0-2.0); EOS % 4.2 % (0-4.5); HEMOGLOBIN 13.9 GM/dL (10.7-15.3); LYMPH % 23.4 % (8-40); MCH 32.4 pg (25.7-33.7); MCHC 34.7 g/dl (32.0-36.0); MEAN CELL VOLUME 93.4 fl (80-96); MEAN PLT VOLUME 9.7 fl (7.5-11.1); MONO % 8.7 % (3.8-10.2); NEUT % 63.1 % (42.8-82.8); PLATELET COUNT 210 K/MM3 (134-434); RBC 4.29 M/mm3 (3.60-5.2); RDW 15.7 % (11.6-15.6); WHITE BLOOD COUNT 6.3 K/mm3 (4.0-10.0)
[2018-07-19 10:55] LABS: ALBUMIN 3.4 g/dl (3.4-5.0); ALK PHOS 206 U/L (45-117); ANION GAP 9 MMOL/L (8-16); BILIRUBIN,DIRECT 0.2 mg/dL (0.0-0.2); BILIRUBIN,TOTAL 0.6 mg/dL (0.2-1); BLOOD UREA NITROGEN 16 mg/dL (7-18); CALCIUM 9.6 mg/dL (8.5-10.1); CHLORIDE 97 mmol/L (98-107); CO2 30 mmol/L (21-32); CREATININE 0.7 mg/dL (0.55-1.3); GLUCOSE,RANDOM 83 mg/dL (74-106); MAGNESIUM 2.1 mg/dL (1.8-2.4); POTASSIUM 4.5 mmol/L (3.5-5.1); SGOT/AST 48 U/L (15-37); SGPT/ALT 31 U/L (13-61); SODIUM 136 mmol/L (136-145); TOT PROT 6.5 g/dl (6.4-8.2)
[2018-07-19 16:27] VITALS: TEMP 98.3
[2018-07-19 16:31] VITALS: BP 152/70; PULSE 88
== END 2018-07-19 12:50 | disposition home or self-care (01) ==
LOC: JONCCHEMO 07:16 → J7W 11:43 → JONCCHEMO 12:50
PROVIDERS: ATTEND Internal Medicine Hematology & Oncology
PROC: 3E033GC Introduction of Other Therapeutic Substance into Peripheral Vein, Percutaneous Approach (ICD-10-PCS; principal; 2018-07-19)
DX: C50.411 Malignant neoplasm of upper-outer quadrant of right female breast (principal); C79.51 Secondary malignant neoplasm of bone
CPT/HCPCS: 36415; 80053; 80076; 82378; 83735; 85025; 86300; 96365; 96417; J3489

== ENCOUNTER 2018-08-16 07:13 | Day surgery (SDC) | payer OTHER, MEDICARE ==
[2018-08-16 09:39] LABS: BASO % 1.3 % (0-2.0); EOS % 2.5 % (0-4.5); HEMATOCRIT 40.1 % (32.4-45.2); HEMOGLOBIN 13.9 GM/dL (10.7-15.3); MCH 31.7 pg (25.7-33.7); MCHC 34.6 g/dl (32.0-36.0); MEAN CELL VOLUME 91.6 fl (80-96); MEAN PLT VOLUME 9.1 fl (7.5-11.1); MONO % 7.2 % (3.8-10.2); PLATELET COUNT 248 K/MM3 (134-434); RBC 4.38 M/mm3 (3.60-5.2); RDW 15.6 % (11.6-15.6); WHITE BLOOD COUNT 7.6 K/mm3 (4.0-10.0)
[2018-08-16] MEDS ORDERED: ZOLEDRONIC ACID 4 MG in SODIUM CHLORIDE 100 ML IVPB ONE (10:00)
[2018-08-16] MEDS ORDERED: FULVESTRANT 250 MG/5 ML SYRINGE IM ONE (10:00)
[2018-08-16 10:15] LABS: ALBUMIN 3.4 g/dl (3.4-5.0); ALK PHOS 336 U/L (45-117); ANION GAP 10 MMOL/L (8-16); BILIRUBIN,DIRECT 0.2 mg/dL (0.0-0.2); BILIRUBIN,TOTAL 0.8 mg/dL (0.2-1); BLOOD UREA NITROGEN 19 mg/dL (7-18); CALCIUM 9.9 mg/dL (8.5-10.1); CHLORIDE 100 mmol/L (98-107); CO2 27 mmol/L (21-32); GLUCOSE,RANDOM 90 mg/dL (74-106); MAGNESIUM 2.2 mg/dL (1.8-2.4); POTASSIUM 4.7 mmol/L (3.5-5.1); SGOT/AST 87 U/L (15-37); SGPT/ALT 64 U/L (13-61); SODIUM 137 mmol/L (136-145); TOT PROT 6.8 g/dl (6.4-8.2)
[2018-08-16 15:08] VITALS: BP 142/56; PULSE 61; TEMP 97.3
== END 2018-08-16 12:00 | disposition home or self-care (01) ==
LOC: JONCCHEMO 07:13 → J7W 10:48 → JONCCHEMO 12:00
PROVIDERS: ATTEND Internal Medicine Hematology & Oncology
PROC: 3E033GC Introduction of Other Therapeutic Substance into Peripheral Vein, Percutaneous Approach (ICD-10-PCS; principal; 2018-08-16)
DX: C50.411 Malignant neoplasm of upper-outer quadrant of right female breast (principal)
CPT/HCPCS: 36415; 80053; 80076; 83735; 85025; 96365; 96417; J3489

== ENCOUNTER 2018-09-20 06:03 | Day surgery (SDC) | payer OTHER, MEDICARE ==
[2018-09-20] MEDS ORDERED: ZOLEDRONIC ACID 4 MG in SODIUM CHLORIDE 100 ML IVPB ONE (09:00)
[2018-09-20 10:55] LABS: BASO % 0.7 % (0-2.0); EOS % 1.4 % (0-4.5); HEMATOCRIT 36.6 % (32.4-45.2); HEMOGLOBIN 12.8 GM/dL (10.7-15.3); LYMPH % 24.5 % (8-40); MCHC 35.1 g/dl (32.0-36.0); MEAN CELL VOLUME 91.4 fl (80-96); MEAN PLT VOLUME 9.8 fl (7.5-11.1); MONO % 4.6 % (3.8-10.2); NEUT % 68.8 % (42.8-82.8); PLATELET COUNT 197 K/MM3 (134-434); RBC 4.01 M/mm3 (3.60-5.2); RDW 16.4 % (11.6-15.6); WHITE BLOOD COUNT 6.5 K/mm3 (4.0-10.0)
[2018-09-20 11:29] LABS: ALBUMIN 3.3 g/dl (3.4-5.0); ALK PHOS 599 U/L (45-117); ANION GAP 8 MMOL/L (8-16); BILIRUBIN,DIRECT 0.3 mg/dL (0.0-0.2); BILIRUBIN,TOTAL 0.9 mg/dL (0.2-1); BLOOD UREA NITROGEN 21 mg/dL (7-18); CALCIUM 9.6 mg/dL (8.5-10.1); CHLORIDE 97 mmol/L (98-107); CO2 29 mmol/L (21-32); CREATININE 1.1 mg/dL (0.55-1.3); GLUCOSE,RANDOM 147 mg/dL (74-106); MAGNESIUM 2.2 mg/dL (1.8-2.4); SGOT/AST 170 U/L (15-37); SGPT/ALT 102 U/L (13-61); SODIUM 134 mmol/L (136-145); TOT PROT 6.6 g/dl (6.4-8.2)
[2018-09-20 17:00] VITALS: TEMP 97.7
[2018-09-20 17:01] VITALS: BP 139/80; PULSE 91
== END 2018-09-20 13:30 | disposition home or self-care (01) ==
LOC: JONCCHEMO 06:03 → J7W 12:14 → JONCCHEMO 13:30
PROVIDERS: ATTEND Internal Medicine Hematology & Oncology
PROC: 3E033GC Introduction of Other Therapeutic Substance into Peripheral Vein, Percutaneous Approach (ICD-10-PCS; principal; 2018-09-20)
DX: C50.411 Malignant neoplasm of upper-outer quadrant of right female breast (principal); C79.51 Secondary malignant neoplasm of bone
CPT/HCPCS: 36415; 80048; 80076; 83735; 85025; 96365; 96417; J3489